=== PATIENT | female | born 1955 | race American Indian/Alaskan Native ===

== ENCOUNTER 2017-02-12 08:03 | Inpatient (IN) | payer MEDICAID ==
[~2017-02-12] VITALS: Ht 172.7 cm; Wt 105.0 kg
[~2017-02-12 08:03] MED LIST: AMOX1TAB61 PO; ASPI325T4 PO; CLON-364 PO; HYDR-3240 PO; INSU100C SQ; INSU100V8 SQ; LACT1CAP24 PO; LOSA100T6 PO; LOVA40TA2 PO; METO50TA82 PO; MORP30TA14 PO; MORP60TA22 PO; NPH,100V SC; VENL150C6 PO
[2017-02-12] MEDS ORDERED: HYDROmorphone 1 MG/ML, 1ML ONE (09:55)
[2017-02-12] MEDS ORDERED: SODIUM CHLORIDE 0.9% 1,000ML IVBOLUS ONE (10:00)
[2017-02-12] MEDS: HYDROmorphone 1 MG/ML, 1ML IV PRN ×2 (10:01→23:53)
[2017-02-12 10:26] LABS: PATH.CAST-FLAG NOT PRESENT; SPERM-FLAG NOT PRESENT; SRC-FLAG NOT PRESENT; XTAL-FLAG NOT PRESENT; YLC-FLAG NOT PRESENT
[2017-02-12 10:36] LABS: BLOOD UREA NITROGEN 41 mg/dL (7-18)
[2017-02-12 10:40] LABS: ASPARTATE AMINO TRANSFERASE 14 U/L (15-37)
[2017-02-12] MEDS ORDERED: SODIUM CHLORIDE 0.9% 1,000 ML IV ONE (10:43)
[2017-02-12] MEDS ORDERED: ACETAMINOPHEN 325 MG TABLET ONE (10:50)
[2017-02-12] MEDS ORDERED: CEFTRIAXONE PMX 1GM/50ML 50 ML ONE (10:50)
[2017-02-12] MEDS ORDERED: ACETAMINOPHEN 325 MG TABLET PO ONE (11:00)
[2017-02-12] MEDS ORDERED: CEFTRIAXONE PMX 1GM/50ML 50 ML IVPB ONE (11:00)
[2017-02-12] MEDS ORDERED: POTASSIUM CHLORIDE 20 MEQ in SODIUM CHLORIDE 0.9% 1,000 ML IV ONE (11:17)
[2017-02-12] MEDS ORDERED: FAMO20TA7 PO (11:19)
[2017-02-12] MEDS ORDERED: AMLO10TA2 PO (11:20)
[2017-02-12] MEDS ORDERED: NS + 20MEQ KCL 0 ML IV ONE (11:30)
[2017-02-12] MEDS ORDERED: ONDANSETRON 2MG/ML, 2ML IVPush PRN ×2 (11:30→16:00)
[2017-02-12 12:22] VITALS: BP 128/74
[2017-02-12 13:53] VITALS: BP 120/66
[2017-02-12] MEDS: SODIUM CHLORIDE 0.9% 1,000 ML IV SCH ×2 (15:36→23:54)
[2017-02-12] MEDS ORDERED: ACETAMINOPHEN 325 MG TABLET PO PRN ×2 (16:00→19:30)
[2017-02-12] MEDS ORDERED: LABETALOL 5MG/ML, 20ML IVPush PRN (16:00)
[2017-02-12] MEDS ORDERED: INSULIN ASPART 100 UNITS/ML, PEN SQ-INSULIN SCH (16:00)
[2017-02-12] MEDS ORDERED: POLYETHYLENE GLYCOL 17 GM PACKET PO PRN ×2 (16:00→19:30)
[2017-02-12] MEDS ORDERED: morphine SULFATE 10 MG/ML, 1ML IVPush PRN (16:00)
[2017-02-12] MEDS ORDERED: hydrALAzine 20 MG/ML, 1ML IVPush PRN (16:00)
[2017-02-12] MEDS ORDERED: BISACODYL 10 MG SUPP PR PRN ×2 (16:00→19:30)
[2017-02-12] MEDS: INSULIN ASPART 100 UNITS/ML, PEN SQ-INSULIN SCH ×2 (17:04→21:07)
[2017-02-12] MEDS: CEFTRIAXONE PMX 1GM/50ML 50 ML IV SCH (17:04)
[2017-02-12] MEDS: HEPARIN 5,000 UNITS/ML, 1ML SQ SCH ×2 (17:04→23:54)
[2017-02-12] MEDS: OXYcodone IR 5MG TABLET PO PRN ×2 (17:37→21:07)
[2017-02-12 18:51] VITALS: BP 116/64
[2017-02-12] MEDS: FAMOTIDINE 40 MG TABLET PO SCH (20:48)
[2017-02-12] MEDS ORDERED: METOPROLOL TARTRATE 100 MG TABLET PO SCH (21:00)
[2017-02-13 01:03] VITALS: BP 130/71
[2017-02-13] MEDS: OXYcodone IR 5MG TABLET PO PRN ×4 (03:35→23:29)
[2017-02-13 04:31] LABS: BLOOD UREA NITROGEN 31 mg/dL (7-18)
[2017-02-13 04:34] LABS: ASPARTATE AMINO TRANSFERASE 13 U/L (15-37)
[2017-02-13] MEDS: CEFTRIAXONE PMX 1GM/50ML 50 ML IV SCH ×2 (04:39→16:15)
[2017-02-13 06:35] VITALS: BP 127/65
[2017-02-13] MEDS: SODIUM CHLORIDE 0.9% 1,000 ML IV SCH (07:54)
[2017-02-13] MEDS: VENLAFAXINE 75 MG CAP ER PO SCH (07:55)
[2017-02-13] MEDS: HEPARIN 5,000 UNITS/ML, 1ML SQ SCH ×3 (07:55→23:29)
[2017-02-13] MEDS: AMLODIPINE 5 MG TABLET PO SCH (07:55)
[2017-02-13] MEDS: ASPIRIN 325 MG TABLET PO SCH (07:56)
[2017-02-13] MEDS: METOPROLOL TARTRATE 100 MG TABLET PO SCH ×2 (07:56→19:49)
[2017-02-13] MEDS: LOSARTAN 50MG TABLET PO SCH (07:57)
[2017-02-13] MEDS: LOVASTATIN 40 MG TABLET PO SCH (07:57)
[2017-02-13] MEDS: SENNA/DOCUSATE TABLET PO SCH (07:58)
[2017-02-13] MEDS: INSULIN ASPART 100 UNITS/ML, PEN SQ-INSULIN SCH ×4 (08:00→19:50)
[2017-02-13] MEDS ORDERED: LOSARTAN 50MG TABLET PO SCH (09:00)
[2017-02-13] MEDS ORDERED: AMLODIPINE 5 MG TABLET PO SCH (09:00)
[2017-02-13] MEDS ORDERED: HYDROmorphone 1 MG/ML, 1ML IV PRN (10:00)
[2017-02-13 13:32] VITALS: BP 126/63
[2017-02-13 14:18] LABS: BLOOD UREA NITROGEN 27 mg/dL (7-18)
[2017-02-13 18:41] VITALS: BP 115/60
[2017-02-13] MEDS: FAMOTIDINE 40 MG TABLET PO SCH (19:49)
[2017-02-14 01:10] VITALS: BP 135/67
[2017-02-14] MEDS: CEFTRIAXONE PMX 1GM/50ML 50 ML IV SCH ×2 (04:02→17:37)
[2017-02-14 05:50] LABS: BLOOD UREA NITROGEN 33 mg/dL (7-18)
[2017-02-14 06:43] VITALS: BP 130/68
[2017-02-14] MEDS: LOVASTATIN 40 MG TABLET PO SCH (07:28)
[2017-02-14] MEDS: AMLODIPINE 5 MG TABLET PO SCH (07:28)
[2017-02-14] MEDS: LOSARTAN 50MG TABLET PO SCH (07:28)
[2017-02-14] MEDS: ASPIRIN 325 MG TABLET PO SCH (07:28)
[2017-02-14] MEDS: METOPROLOL TARTRATE 100 MG TABLET PO SCH ×2 (07:28→20:55)
[2017-02-14] MEDS: SENNA/DOCUSATE TABLET PO SCH (07:28)
[2017-02-14] MEDS: HEPARIN 5,000 UNITS/ML, 1ML SQ SCH ×2 (07:29→15:23)
[2017-02-14] MEDS: VENLAFAXINE 75 MG CAP ER PO SCH (07:29)
[2017-02-14] MEDS: OXYcodone IR 5MG TABLET PO PRN ×3 (07:29→20:56)
[2017-02-14] MEDS: INSULIN ASPART 100 UNITS/ML, PEN SQ-INSULIN SCH ×4 (07:30→20:54)
[2017-02-14] MEDS ORDERED: DEXTROSE 50%, 50ML SYRINGE IVPush PRN (08:30)
[2017-02-14] MEDS ORDERED: DEXTROSE 4 GM TAB.CHEW PO PRN (08:30)
[2017-02-14] MEDS ORDERED: INSULIN DETEMIR 100 UNITS/ML, PEN SQ-INSULIN SCH ×2 (08:30→20:30)
[2017-02-14] MEDS: SODIUM CHLORIDE 0.9% 1,000 ML IV SCH (08:30)
[2017-02-14] MEDS ORDERED: GLUCAGON 1 MG IM PRN (08:30)
[2017-02-14] MEDS: SODIUM CHLORIDE FLUSH 10ML SYR IVF SCH ×2 (09:00→20:55)
[2017-02-14] MEDS ORDERED: INSULIN NPH HUMAN 100 UNIT/ML, 3ML VIAL SQ-INSULIN SCH (09:00)
[2017-02-14 12:32] VITALS: BP 135/85
[2017-02-14 19:07] VITALS: BP 117/70
[2017-02-14] MEDS ORDERED: FAMOTIDINE 20 MG TABLET PO SCH (21:00)
[2017-02-15] MEDS: SODIUM CHLORIDE 0.9% 1,000 ML IV SCH (00:02)
[2017-02-15 01:06] VITALS: BP 154/78
[2017-02-15] MEDS: OXYcodone IR 5MG TABLET PO PRN ×2 (01:23→10:13)
[2017-02-15 04:57] LABS: BLOOD UREA NITROGEN 31 mg/dL (7-18)
[2017-02-15] MEDS: CEFTRIAXONE PMX 1GM/50ML 50 ML IV SCH (05:03)
[2017-02-15 07:35] VITALS: BP 121/56
[2017-02-15] MEDS: INSULIN ASPART 100 UNITS/ML, PEN SQ-INSULIN SCH ×2 (07:43→11:22)
[2017-02-15] MEDS: HEPARIN 5,000 UNITS/ML, 1ML SQ SCH ×2 (07:44)
[2017-02-15] MEDS ORDERED: INSULIN DETEMIR 100 UNITS/ML, PEN SQ-INSULIN SCH (08:30)
[2017-02-15] MEDS ORDERED: CEFD300C37 PO (09:52)
[2017-02-15] MEDS ORDERED: CEFDINIR 300 MG CAPSULE PO SCH (10:00)
[2017-02-15] MEDS: VENLAFAXINE 75 MG CAP ER PO SCH (10:01)
[2017-02-15] MEDS: AMLODIPINE 5 MG TABLET PO SCH (10:01)
[2017-02-15] MEDS: METOPROLOL TARTRATE 100 MG TABLET PO SCH (10:02)
[2017-02-15] MEDS: SENNA/DOCUSATE TABLET PO SCH (10:02)
[2017-02-15] MEDS: SODIUM CHLORIDE FLUSH 10ML SYR IVF SCH (10:02)
[2017-02-15] MEDS: ASPIRIN 325 MG TABLET PO SCH (10:02)
[2017-02-15] MEDS: LOSARTAN 50MG TABLET PO SCH (10:02)
[2017-02-15] MEDS ORDERED: OXYcodone IR 5MG TABLET PO ONE (10:30)
[2017-02-15] MEDS ORDERED: OXYcodone IR 5MG TABLET PO PRN (16:00)
== END 2017-02-15 13:04 | disposition home or self-care (01) | DRG 872 ==
LOC: ED 10:22 → EDIP 11:17 → 3NW 12:15
PROVIDERS: ADMIT Hospitalist; ATTEND Hospitalist
DX: A41.9 Sepsis, unspecified organism (principal); N10 Acute pyelonephritis; N17.9 Acute kidney failure, unspecified; E78.5 Hyperlipidemia, unspecified; F41.9 Anxiety disorder, unspecified; G89.29 Other chronic pain; N18.3 Chronic kidney disease, stage 3 (moderate); I12.9 Hypertensive chronic kidney disease with stage 1 through stage 4 chronic kidney disease, or unspecified chronic kidney disease; E11.22 Type 2 diabetes mellitus with diabetic chronic kidney disease; F32.9 Major depressive disorder, single episode, unspecified; M54.5 Low back pain; E87.5 Hyperkalemia; N21.0 Calculus in bladder; B96.20 Unspecified Escherichia coli [E. coli] as the cause of diseases classified elsewhere; Z90.5 Acquired absence of kidney; Z87.891 Personal history of nicotine dependence; Z99.3 Dependence on wheelchair; Z88.6 Allergy status to analgesic agent; Z88.2 Allergy status to sulfonamides; Z85.528 Personal history of other malignant neoplasm of kidney; Z90.710 Acquired absence of both cervix and uterus; Z79.899 Other long term (current) drug therapy; Z79.4 Long term (current) use of insulin; Z82.49 Family history of ischemic heart disease and other diseases of the circulatory system; Z82.5 Family history of asthma and other chronic lower respiratory diseases
CPT/HCPCS: 36415; 74176; 76770; 80048; 80053; 80061; 81001; 82962; 83036; 83605; 83690; 83735; 84439; 84443; 85025; 87040; 87077; 87086; 87186; 93005; 96361; 96365; J0696; J1170; J1644; J1815; J7030

== ENCOUNTER 2017-12-21 11:35 | Inpatient (IN) | payer MEDICAID ==
[~2017-12-21] VITALS: Ht 170.2 cm; Wt 110.8 kg
[~2017-12-21 11:35] MED LIST changes: +AMLO10TA2 PO; +ASPI325T17 PO; -ASPI325T4 PO; +CEFD300C37 PO; +FAMO20TA7 PO
[2017-12-21] MEDS ORDERED: SODIUM CHLORIDE FLUSH 10ML SYR IVF ONE (12:30)
[2017-12-21 12:48] LABS: BASOPHILS # (AUTO) 0.07 x10^3/uL (0-0.1); BASOPHILS % (AUTO) 1 % (0-1); EOSINOPHILS # (AUTO) 0.21 x10^3/uL (0-0.4); EOSINOPHILS % (AUTO) 2 % (1-7); LYMPHOCYTES # (AUTO) 3.81 x10^3/uL (1-3.4); LYMPHOCYTES % (AUTO) 40 % (22-44); MD NO; MEAN CORPUSCULAR HGB CONC 33.2 g/dL (32.4-35.8); MEAN CORPUSCULAR VOLUME 93.2 fL (80-100); MONOCYTES % (AUTO) 11 % (2-9); NEUTROPHILS % (AUTO) 46 % (42-75); PLATELET COUNT 404 x10^3/uL (130-400); RED CELL DISTRIBUTION WIDTH 13.7 % (9.6-15.2)
[2017-12-21 12:58] LABS: ALANINE AMINOTRANSFERASE 38 U/L (12-78); ALBUMIN 3.5 g/dL (3.4-5.0); ANION GAP 10 mmol/L (5-15); CALCIUM 9.4 mg/dL (8.5-10.1); CHLORIDE 104 mmol/L (98-107)
[2017-12-21 13:03] LABS: ALKALINE PHOSPHATASE 127 U/L (45-117); BILIRUBIN,TOTAL 0.7 mg/dL (0.2-1.0); CREATININE 1.73 mg/dL (0.55-1.02); TOTAL PROTEIN 7.8 g/dL (6.4-8.2)
[2017-12-21 13:08] LABS: TROPONIN I 0.777 ng/mL (0.000-0.045)
[2017-12-21] MEDS ORDERED: NITROGLYCERIN OINT 2%, 1GM TP ONE ×2 (13:23→13:30)
[2017-12-21] MEDS ORDERED: ONDANSETRON ODT 4 MG ONE (13:23)
[2017-12-21] MEDS ORDERED: ASPIRIN 81 MG TABLET CHEW ONE (13:24)
[2017-12-21] MEDS ORDERED: ONDANSETRON ODT 4 MG PO ONE (13:30)
[2017-12-21] MEDS ORDERED: MORPHINE SULFATE 4 MG/ML, 1ML IVPush ONE (13:30)
[2017-12-21] MEDS ORDERED: ASPIRIN 81 MG TABLET CHEW PO ONE (13:30)
[2017-12-21] MEDS ORDERED: MORPHINE SULFATE 4 MG/ML, 1ML ONE (13:57)
[2017-12-21] MEDS ORDERED: HEPARIN 25,000 UNITS/500ML PMX 500 ML IV PRN (14:00)
[2017-12-21] MEDS ORDERED: HEPARIN 5,000 UNITS/ML, 1ML IV PRN (14:00)
[2017-12-21] MEDS ORDERED: HEPARIN 5,000 UNITS/ML, 1ML IV ONE (14:00)
[2017-12-21] MEDS ORDERED: HEPARIN 25,000 UNITS/500ML PMX 500 ML ONE (14:28)
[2017-12-21] MEDS ORDERED: HEPARIN 5,000 UNITS/ML, 1ML ONE (14:28)
[2017-12-21] MEDS ORDERED: ACETAMINOPHEN 325 MG TABLET PO PRN (15:30)
[2017-12-21] MEDS ORDERED: DEXTROSE 50%, 50ML SYRINGE IVPush PRN (15:30)
[2017-12-21] MEDS ORDERED: ONDANSETRON ODT 4 MG PO PRN (15:30)
[2017-12-21] MEDS ORDERED: DEXTROSE 4 GM TAB.CHEW PO PRN (15:30)
[2017-12-21] MEDS ORDERED: ONDANSETRON 2MG/ML, 2ML IVPush PRN (15:30)
[2017-12-21] MEDS ORDERED: GLUCAGON 1 MG IM PRN (15:30)
[2017-12-21] MEDS ORDERED: DOCUSATE 100 MG CAPSULE PO PRN (15:30)
[2017-12-21] MEDS ORDERED: BISACODYL 10 MG SUPP PR PRN (15:30)
[2017-12-21] MEDS ORDERED: POTASSIUM CHLORIDE 20 MEQ TAB.ER.PRT PO ONE (16:00)
[2017-12-21 16:23] LABS: HEMOGLOBIN A1C 9.2 % (4.2-6.3)
[2017-12-21] MEDS: INSULIN LISPRO 100 UNITS/ML, PEN SQ-INSULIN SCH ×2 (16:28→20:55)
[2017-12-21 16:37] VITALS: BP 115/76
[2017-12-21] MEDS: morphine SULFATE 10 MG/ML, 1ML IVPush PRN (17:36)
[2017-12-21] MEDS ORDERED: LORazepam 0.5MG TABLET ONE (18:10)
[2017-12-21] MEDS: AMLODIPINE 5 MG TABLET PO SCH (18:22)
[2017-12-21] MEDS ORDERED: LORazepam 0.5MG TABLET PO ONE (18:30)
[2017-12-21] MEDS: KETOROLAC OPHTH 0.5%, 5ML LEFTEYE SCH (18:48)
[2017-12-21] MEDS: predniSOLONE OPHTH SUSP 1%, 5ML LEFTEYE SCH (18:48)
[2017-12-21 19:20] VITALS: BP 128/78
[2017-12-21] MEDS ORDERED: morphine SULFATE 10 MG/ML, 1ML IVPush ONE (19:30)
[2017-12-21] MEDS: SODIUM CHLORIDE 0.9% 1,000 ML IV SCH ×4 (20:45→21:17)
[2017-12-21] MEDS: ATORVASTATIN 40 MG TABLET PO SCH (20:46)
[2017-12-21] MEDS: LACTULOSE 10 GM/15 ML UDC PO SCH (20:46)
[2017-12-21] MEDS: KETOROLAC OPHTH 0.5%, 5ML RIGHTEYE SCH (20:47)
[2017-12-21] MEDS: FAMOTIDINE 20 MG TABLET PO SCH (20:47)
[2017-12-21] MEDS: predniSOLONE OPHTH SUSP 1%, 5ML RIGHTEYE SCH (20:48)
[2017-12-21] MEDS: MOXIFLOXACIN OPHTH O.5%, 3ML RIGHTEYE SCH (21:00)
[2017-12-22] MEDS: SODIUM CHLORIDE 0.9% 1,000 ML IV SCH ×2 (00:29→23:18)
[2017-12-22] MEDS: morphine SULFATE 10 MG/ML, 1ML IVPush PRN ×2 (00:56→17:13)
[2017-12-22 01:54] VITALS: BP 110/72
[2017-12-22 03:14] LABS: MEAN CORPUSCULAR HEMOGLOBIN 31.5 pg (27.0-34.8); MEAN CORPUSCULAR HGB CONC 33.3 g/dL (32.4-35.8); MEAN CORPUSCULAR VOLUME 94.5 fL (80-100); RED BLOOD COUNT 4.01 x10^6/uL (3.82-5.3); RED CELL DISTRIBUTION WIDTH 13.9 % (9.6-15.2)
[2017-12-22 03:17] LABS: ANION GAP 9 mmol/L (5-15); CALCIUM 9.1 mg/dL (8.5-10.1); CHLORIDE 103 mmol/L (98-107); CHOLESTEROL, TOTAL 144 mg/dL (140-239); CREATININE 1.95 mg/dL (0.55-1.02); TRIGLYCERIDES 87 mg/dL (50-200); VLDL CHOLESTEROL 17 mg/dL (0-25)
[2017-12-22 03:19] LABS: CHOL/HDL RATIO 2.1; HDL CHOL % 49 % (28-40); HDL CHOLESTEROL (DIRECT) 70 mg/dL (40-60); LDL CHOLESTEROL,CALCULATED 57 mg/dL (54-169); LDL/HDL RATIO 0.8 (0.5-3.0)
[2017-12-22 03:26] LABS: BASOPHILS # (AUTO) 0.03 x10^3/uL (0-0.1); BASOPHILS % (AUTO) 0 % (0-1); EOSINOPHILS # (AUTO) 0.02 x10^3/uL (0-0.4); EOSINOPHILS % (AUTO) 0 % (1-7); LYMPHOCYTES # (AUTO) 1.31 x10^3/uL (1-3.4); LYMPHOCYTES % (AUTO) 16 % (22-44); MD SCAN; MONOCYTES # (AUTO) 0.45 x10^3/uL (0.2-0.8); MONOCYTES % (AUTO) 5 % (2-9); NEUTROPHILS # (AUTO) 6.58 x10^3/uL (1.8-6.8); NEUTROPHILS % (AUTO) 78 % (42-75); PLATELET COUNT 296 x10^3/uL (130-400)
[2017-12-22] MEDS: predniSOLONE OPHTH SUSP 1%, 5ML RIGHTEYE SCH ×4 (05:19→20:59)
[2017-12-22] MEDS: KETOROLAC OPHTH 0.5%, 5ML RIGHTEYE SCH ×4 (05:19→21:00)
[2017-12-22] MEDS: MOXIFLOXACIN OPHTH O.5%, 3ML RIGHTEYE SCH ×4 (05:20→20:59)
[2017-12-22] MEDS: INSULIN LISPRO 100 UNITS/ML, PEN SQ-INSULIN SCH ×4 (07:00→21:11)
[2017-12-22] MEDS: LACTULOSE 10 GM/15 ML UDC PO SCH ×2 (07:58→20:58)
[2017-12-22] MEDS: SENNA/DOCUSATE TABLET PO SCH (07:58)
[2017-12-22] MEDS ORDERED: LOVASTATIN 40 MG TABLET PO SCH (09:00)
[2017-12-22] MEDS ORDERED: ASPIRIN 325 MG TABLET PO SCH (09:00)
[2017-12-22 09:22] VITALS: BP 115/75
[2017-12-22] MEDS: AMLODIPINE 5 MG TABLET PO SCH (09:28)
[2017-12-22] MEDS: predniSOLONE OPHTH SUSP 1%, 5ML LEFTEYE SCH ×2 (09:29→20:59)
[2017-12-22] MEDS: KETOROLAC OPHTH 0.5%, 5ML LEFTEYE SCH ×2 (09:29→20:58)
[2017-12-22] MEDS ORDERED: SODIUM BICARB 8.4%,50ML SYR. 150 MEQ in DEXTROSE 5% 1,000 ML IV SCH (11:50)
[2017-12-22 13:29] VITALS: BP 138/78
[2017-12-22] MEDS ORDERED: FENTANYL PF 100 MCG/2ML ONE (15:24)
[2017-12-22] MEDS ORDERED: MIDAZOLAM 1 MG/ML, 5ML ONE (15:24)
[2017-12-22] MEDS ORDERED: VERAPAMIL 2.5 MG/ML, 2ML ONE (15:24)
[2017-12-22] MEDS ORDERED: TICAGRELOR 90 MG TABLET ONE (15:24)
[2017-12-22] MEDS ORDERED: HEPARIN 1,000 UNITS/ML, 10ML ONE (15:24)
[2017-12-22] MEDS ORDERED: BIVALIRUDIN 250 MG ONE ×2 (15:24→16:13)
[2017-12-22] MEDS ORDERED: LIDOCAINE 2%, 2ML ONE (15:24)
[2017-12-22] MEDS ORDERED: BIVALIRUDIN 250 MG in DEXTROSE 5% 50 ML IV SCH (16:10)
[2017-12-22] MEDS: CARVEDILOL 6.25 MG TABLET PO SCH ×2 (17:11→17:52)
[2017-12-22] MEDS ORDERED: [UNRECOGNIZED DRUG - OTHER] MC SCH (18:00)
[2017-12-22 19:14] VITALS: BP 121/80
[2017-12-22] MEDS: TICAGRELOR 90 MG TABLET PO SCH (20:57)
[2017-12-22] MEDS: FAMOTIDINE 20 MG TABLET PO SCH (20:58)
[2017-12-22] MEDS: ATORVASTATIN 40 MG TABLET PO SCH (20:58)
[2017-12-23 01:43] VITALS: BP 139/77
[2017-12-23] MEDS: morphine SULFATE 10 MG/ML, 1ML IVPush PRN (04:10)
[2017-12-23] MEDS: predniSOLONE OPHTH SUSP 1%, 5ML RIGHTEYE SCH ×4 (05:36→21:34)
[2017-12-23] MEDS: KETOROLAC OPHTH 0.5%, 5ML RIGHTEYE SCH ×4 (05:36→21:37)
[2017-12-23] MEDS: CARVEDILOL 6.25 MG TABLET PO SCH (05:36)
[2017-12-23] MEDS: MOXIFLOXACIN OPHTH O.5%, 3ML RIGHTEYE SCH ×4 (05:37→21:40)
[2017-12-23 06:11] LABS: ALBUMIN 3.1 g/dL (3.4-5.0); ANION GAP 8 mmol/L (5-15); CALCIUM 8.9 mg/dL (8.5-10.1); CHLORIDE 106 mmol/L (98-107); CREATININE 1.53 mg/dL (0.55-1.02)
[2017-12-23 06:35] VITALS: BP 163/87
[2017-12-23] MEDS ORDERED: ASPIRIN 325 MG TABLET PO SCH (09:00)
[2017-12-23] MEDS: LACTULOSE 10 GM/15 ML UDC PO SCH ×2 (09:00→21:32)
[2017-12-23] MEDS: SENNA/DOCUSATE TABLET PO SCH (09:36)
[2017-12-23] MEDS: ASPIRIN 81 MG TABLET EC PO SCH (09:36)
[2017-12-23] MEDS: AMLODIPINE 5 MG TABLET PO SCH (09:36)
[2017-12-23] MEDS: TICAGRELOR 90 MG TABLET PO SCH ×2 (09:36→21:31)
[2017-12-23] MEDS: SODIUM CHLORIDE 0.9% 1,000 ML IV SCH ×2 (09:37→19:10)
[2017-12-23] MEDS: KETOROLAC OPHTH 0.5%, 5ML LEFTEYE SCH ×2 (09:38→21:37)
[2017-12-23] MEDS: predniSOLONE OPHTH SUSP 1%, 5ML LEFTEYE SCH ×2 (09:38→21:37)
[2017-12-23] MEDS: INSULIN LISPRO 100 UNITS/ML, PEN SQ-INSULIN SCH ×4 (09:39→21:32)
[2017-12-23 12:56] VITALS: BP 157/82
[2017-12-23 16:55] VITALS: BP 158/91
[2017-12-23] MEDS: CARVEDILOL 12.5 MG TABLET PO SCH (17:01)
[2017-12-23 19:12] VITALS: BP 146/82
[2017-12-23] MEDS: ATORVASTATIN 40 MG TABLET PO SCH (21:31)
[2017-12-23] MEDS: FAMOTIDINE 20 MG TABLET PO SCH (21:31)
[2017-12-23] MEDS ORDERED: HYDROcodone/APAP 5/325 TABLET PO ONE (22:30)
[2017-12-23] MEDS ORDERED: HYDROcodone/APAP 5/325 TABLET ONE (22:43)
[2017-12-24 01:41] VITALS: BP 147/82
[2017-12-24] MEDS: SODIUM CHLORIDE 0.9% 1,000 ML IV SCH ×2 (05:03→16:07)
[2017-12-24] MEDS: KETOROLAC OPHTH 0.5%, 5ML RIGHTEYE SCH ×4 (05:03→21:24)
[2017-12-24] MEDS: CARVEDILOL 12.5 MG TABLET PO SCH (05:04)
[2017-12-24] MEDS: predniSOLONE OPHTH SUSP 1%, 5ML RIGHTEYE SCH ×4 (05:06→21:28)
[2017-12-24] MEDS: MOXIFLOXACIN OPHTH O.5%, 3ML RIGHTEYE SCH ×4 (05:09→21:30)
[2017-12-24 05:29] LABS: BASOPHILS # (AUTO) 0.03 x10^3/uL (0-0.1); BASOPHILS % (AUTO) 0 % (0-1); EOSINOPHILS # (AUTO) 0.12 x10^3/uL (0-0.4); EOSINOPHILS % (AUTO) 2 % (1-7); LYMPHOCYTES # (AUTO) 1.88 x10^3/uL (1-3.4); LYMPHOCYTES % (AUTO) 25 % (22-44); MD NO; MEAN CORPUSCULAR VOLUME 93.8 fL (80-100); MEAN PLATELET VOLUME 8.7 fL (7.4-10.4); MONOCYTES # (AUTO) 0.72 x10^3/uL (0.2-0.8); MONOCYTES % (AUTO) 10 % (2-9); NEUTROPHILS # (AUTO) 4.72 x10^3/uL (1.8-6.8); NEUTROPHILS % (AUTO) 63 % (42-75); PLATELET COUNT 354 x10^3/uL (130-400); RED BLOOD COUNT 3.95 x10^6/uL (3.82-5.3); RED CELL DISTRIBUTION WIDTH 14.4 % (9.6-15.2)
[2017-12-24 05:41] LABS: ANION GAP 10 mmol/L (5-15); CALCIUM 8.4 mg/dL (8.5-10.1); CHLORIDE 106 mmol/L (98-107)
[2017-12-24 05:45] LABS: CREATININE 1.46 mg/dL (0.55-1.02)
[2017-12-24 07:23] VITALS: BP 135/79
[2017-12-24] MEDS: SENNA/DOCUSATE TABLET PO SCH (07:33)
[2017-12-24] MEDS: ASPIRIN 81 MG TABLET EC PO SCH (07:34)
[2017-12-24] MEDS: INSULIN LISPRO 100 UNITS/ML, PEN SQ-INSULIN SCH ×4 (07:34→21:23)
[2017-12-24] MEDS: TICAGRELOR 90 MG TABLET PO SCH ×2 (07:34→21:20)
[2017-12-24] MEDS: AMLODIPINE 5 MG TABLET PO SCH (07:34)
[2017-12-24] MEDS: predniSOLONE OPHTH SUSP 1%, 5ML LEFTEYE SCH ×2 (07:36→21:27)
[2017-12-24] MEDS: KETOROLAC OPHTH 0.5%, 5ML LEFTEYE SCH ×2 (07:36→21:24)
[2017-12-24] MEDS: LACTULOSE 10 GM/15 ML UDC PO SCH ×2 (07:37→21:22)
[2017-12-24] MEDS: HEPARIN 5,000 UNITS/ML, 1ML SQ SCH ×2 (08:00→16:21)
[2017-12-24] MEDS ORDERED: HYDROcodone/APAP 5/325 TABLET PO ONE (10:00)
[2017-12-24] MEDS: LOSARTAN 50MG TABLET PO SCH (11:58)
[2017-12-24 12:44] VITALS: BP 143/83
[2017-12-24] MEDS ORDERED: ACETAMINOPHEN 325 MG TABLET ONE (16:16)
[2017-12-24] MEDS: CARVEDILOL 25 MG TABLET PO SCH (16:30)
[2017-12-24] MEDS: ACETAMINOPHEN 325 MG TABLET PO SCH ×2 (16:30→22:44)
[2017-12-24] MEDS ORDERED: CARVEDILOL 12.5 MG TABLET PO SCH (18:00)
[2017-12-24 19:04] VITALS: BP 119/82
[2017-12-24] MEDS: FAMOTIDINE 20 MG TABLET PO SCH (21:20)
[2017-12-24] MEDS: ATORVASTATIN 40 MG TABLET PO SCH (21:20)
[2017-12-25 00:23] VITALS: BP 139/91
[2017-12-25] MEDS: HEPARIN 5,000 UNITS/ML, 1ML SQ SCH ×3 (00:44→17:22)
[2017-12-25 05:12] LABS: ANION GAP 9 mmol/L (5-15); CALCIUM 8.8 mg/dL (8.5-10.1); CHLORIDE 105 mmol/L (98-107); CREATININE 1.47 mg/dL (0.55-1.02)
[2017-12-25] MEDS: SODIUM CHLORIDE 0.9% 1,000 ML IV SCH ×2 (05:18→20:18)
[2017-12-25] MEDS: CARVEDILOL 25 MG TABLET PO SCH ×2 (05:19→17:21)
[2017-12-25] MEDS: KETOROLAC OPHTH 0.5%, 5ML RIGHTEYE SCH ×4 (05:19→20:19)
[2017-12-25] MEDS: ACETAMINOPHEN 325 MG TABLET PO SCH ×2 (05:19→10:30)
[2017-12-25] MEDS: MOXIFLOXACIN OPHTH O.5%, 3ML RIGHTEYE SCH ×4 (05:21→20:19)
[2017-12-25] MEDS: predniSOLONE OPHTH SUSP 1%, 5ML RIGHTEYE SCH ×4 (05:23→20:19)
[2017-12-25 07:27] VITALS: BP 112/69
[2017-12-25] MEDS: TICAGRELOR 90 MG TABLET PO SCH ×2 (08:11→20:19)
[2017-12-25] MEDS: ASPIRIN 81 MG TABLET EC PO SCH (08:11)
[2017-12-25] MEDS: SENNA/DOCUSATE TABLET PO SCH (08:11)
[2017-12-25] MEDS: LACTOBACILLUS CHEW TABLET PO SCH ×3 (08:11→20:19)
[2017-12-25] MEDS: INSULIN LISPRO 100 UNITS/ML, PEN SQ-INSULIN SCH ×4 (08:12→20:32)
[2017-12-25] MEDS: LOSARTAN 50MG TABLET PO SCH (08:12)
[2017-12-25] MEDS: predniSOLONE OPHTH SUSP 1%, 5ML LEFTEYE SCH ×2 (08:23→20:18)
[2017-12-25] MEDS: KETOROLAC OPHTH 0.5%, 5ML LEFTEYE SCH ×2 (08:23→20:18)
[2017-12-25] MEDS ORDERED: OMNIPAQUE 350 MG/ML, 75ML BOTTLE ONE (08:43)
[2017-12-25] MEDS: HYDROcodone/APAP 5/325 TABLET PO PRN (11:29)
[2017-12-25 12:50] VITALS: BP 121/82
[2017-12-25 15:00] VITALS: BP 122/74
[2017-12-25] MEDS ORDERED: ACETAMINOPHEN 325 MG TABLET PO PRN (16:30)
[2017-12-25] MEDS: FAMOTIDINE 20 MG TABLET PO SCH (20:19)
[2017-12-25] MEDS: ATORVASTATIN 40 MG TABLET PO SCH (20:19)
[2017-12-25 20:42] VITALS: BP 121/78
[2017-12-26] MEDS: HEPARIN 5,000 UNITS/ML, 1ML SQ SCH ×2 (00:22→07:55)
[2017-12-26] MEDS: HYDROcodone/APAP 5/325 TABLET PO PRN ×2 (00:22→11:01)
[2017-12-26 00:31] VITALS: BP 111/58
[2017-12-26] MEDS: predniSOLONE OPHTH SUSP 1%, 5ML RIGHTEYE SCH ×2 (05:58→11:19)
[2017-12-26] MEDS: KETOROLAC OPHTH 0.5%, 5ML RIGHTEYE SCH ×2 (05:58→11:19)
[2017-12-26] MEDS: MOXIFLOXACIN OPHTH O.5%, 3ML RIGHTEYE SCH ×2 (05:58→11:19)
[2017-12-26] MEDS: CARVEDILOL 25 MG TABLET PO SCH (05:58)
[2017-12-26] MEDS ORDERED: NITROGLYCERIN 0.4 MG/SPRAY SL PRN (07:30)
[2017-12-26] MEDS ORDERED: NITROGLYCERIN 0.4 MG BOTTLE (25 TABS) SL PRN (07:30)
[2017-12-26 07:54] VITALS: BP 134/83
[2017-12-26] MEDS: LACTOBACILLUS CHEW TABLET PO SCH (07:55)
[2017-12-26] MEDS: TICAGRELOR 90 MG TABLET PO SCH (07:56)
[2017-12-26] MEDS: ASPIRIN 81 MG TABLET EC PO SCH (07:56)
[2017-12-26] MEDS: SENNA/DOCUSATE TABLET PO SCH (07:56)
[2017-12-26] MEDS: KETOROLAC OPHTH 0.5%, 5ML LEFTEYE SCH (07:57)
[2017-12-26] MEDS: predniSOLONE OPHTH SUSP 1%, 5ML LEFTEYE SCH (07:58)
[2017-12-26] MEDS: INSULIN LISPRO 100 UNITS/ML, PEN SQ-INSULIN SCH ×2 (08:01→11:25)
[2017-12-26] MEDS: LOSARTAN 50MG TABLET PO SCH (08:03)
[2017-12-26] MEDS ORDERED: ACETAMINOPHEN 325 MG TABLET PO SCH (09:30)
[2017-12-26] MEDS ORDERED: CARV25TA12 PO (11:08)
[2017-12-26] MEDS ORDERED: NITR0.4T SL (11:08)
[2017-12-26] MEDS ORDERED: PRED5DRO15 LEFTEYE (11:08)
[2017-12-26] MEDS ORDERED: TICA90TA PO (11:08)
[2017-12-26] MEDS ORDERED: MOXI3DRO2 RIGHTEYE (11:08)
[2017-12-26] MEDS ORDERED: LOSA100T6 PO (11:08)
[2017-12-26] MEDS ORDERED: PRED5DRO15 RIGHTEYE (11:08)
[2017-12-26] MEDS ORDERED: ACID1TAB7 PO (11:08)
[2017-12-26] MEDS ORDERED: INSU100V8 SQ (11:08)
[2017-12-26] MEDS ORDERED: ASPI-621 PO (11:08)
[2017-12-26 12:40] VITALS: BP 117/78
[2017-12-26] MEDS ORDERED: INSULIN GLARGINE 100 UNITS/ML, PEN SQ-INSULIN SCH (21:00)
== END 2017-12-26 14:29 | disposition home or self-care (01) | DRG 247 ==
LOC: MERGE 11:35 → ED 12:43 → EDIP 13:19 → INTOOBSV 13:19 → OBSVTOIN 13:19 → 5SO 15:35
PROVIDERS: ADMIT Internal Medicine; ATTEND Internal Medicine
PROC: 027035Z Dilation of Coronary Artery, One Artery with Two Drug-eluting Intraluminal Devices, Percutaneous Approach (ICD-10-PCS; principal; 2017-12-22)
PROC: 4A023N7 Measurement of Cardiac Sampling and Pressure, Left Heart, Percutaneous Approach (ICD-10-PCS; 2017-12-22)
PROC: B2011ZZ Plain Radiography of Multiple Coronary Arteries using Low Osmolar Contrast (ICD-10-PCS; 2017-12-22)
DX: I21.4 Non-ST elevation (NSTEMI) myocardial infarction (principal); E11.22 Type 2 diabetes mellitus with diabetic chronic kidney disease; N17.9 Acute kidney failure, unspecified; E66.01 Morbid (severe) obesity due to excess calories; N18.3 Chronic kidney disease, stage 3 (moderate); Z88.2 Allergy status to sulfonamides; Z88.6 Allergy status to analgesic agent; E78.5 Hyperlipidemia, unspecified; E87.6 Hypokalemia; F41.9 Anxiety disorder, unspecified; I12.9 Hypertensive chronic kidney disease with stage 1 through stage 4 chronic kidney disease, or unspecified chronic kidney disease; I25.10 Atherosclerotic heart disease of native coronary artery without angina pectoris; K21.9 Gastro-esophageal reflux disease without esophagitis; Z66 Do not resuscitate; Z79.82 Long term (current) use of aspirin; Z82.49 Family history of ischemic heart disease and other diseases of the circulatory system; Z85.528 Personal history of other malignant neoplasm of kidney; Z86.14 Personal history of Methicillin resistant Staphylococcus aureus infection; Z87.891 Personal history of nicotine dependence; Z90.5 Acquired absence of kidney; Z90.710 Acquired absence of both cervix and uterus; R91.8 Other nonspecific abnormal finding of lung field
CPT/HCPCS: 36415; 71045; 71260; 80048; 80053; 80061; 82040; 82947; 82962; 83036; 83735; 83880; 84100; 84443; 84484; 85025; 85520; 93005; 93306; 93454; 96374; 96375; 99156; 99157; C1769; C1894; C9600; J0583; J1644; J2250; J3010; J3490; J7070; Q0162; Q9967; C1725; C1874; C1887; J1815; J2270; J7030

== ENCOUNTER 2017-12-21 11:45 | Emergency (ER) | payer MEDICAID | END 2017-12-21 12:27 | LOC: ED 12:21 | DX: Z02.9 Encounter for administrative examinations, unspecified (principal) | CPT/HCPCS: 82962 ==

== ENCOUNTER → 2020-07-13 | Outpatient (CLI) | payer MEDICAID ==
[~2020-07-13] MED LIST changes: +ACID1TAB7 PO; +AMLO-211 PO; -AMLO10TA2 PO; +ASPI81TA45 PO; +CARV25TA12 PO; +LOSA100T14 PO; -LOSA100T6 PO; +MOXI3DRO19 RIGHTEYE; +NITR0.4T41 SL; +PRED5DRO15 LEFTEYE; +PRED5DRO15 RIGHTEYE; +TICA90TA PO
== END | disposition home or self-care (01) ==
LOC: CVU 14:22
PROVIDERS: ATTEND Nurse Practitioner Family
DX: I36.1 Nonrheumatic tricuspid (valve) insufficiency (principal); I11.9 Hypertensive heart disease without heart failure; I25.10 Atherosclerotic heart disease of native coronary artery without angina pectoris; R91.1 Solitary pulmonary nodule
CPT/HCPCS: 93306; 93356